=== PATIENT | female | born 1965 | race Caucasian/White ===

== ENCOUNTER 2019-08-31 15:29 | Outpatient (CLI) | payer BC, SELFPAY ==
--- NOTE | 2019-08-31 | ECG_ITS ---
Measurements Intervals [place] Rate: 68 P: 66 IA: 156 QRS: 27 QRSD: 90 T: 38 QT: 410 QTc: 439 Interpretive Statements SINUS RHYTHM BASELINE WANDER- II, III, V1-V2 NORMAL ECG Electronically Signed On 08-31-2019 18:59:59 CDT by Ari Vela D.O.
== END 2019-08-31 15:30 | disposition home or self-care (01) ==
PROVIDERS: PCP Family Medicine; Visit Provider Podiatrist Foot & Ankle Surgery
DX: R03.0 Elevated blood-pressure reading, without diagnosis of hypertension (principal)
CPT/HCPCS: 93005

== ENCOUNTER → 2020-12-21 12:55 | Outpatient (CLI) | payer BC, SELFPAY ==
--- NOTE | ~2020-12-21 | MM_ITS ---
EXAMINATION: MM screening [facility] BI w lucila HISTORY: Screening TECHNIQUE: Craniocaudal and mediolateral oblique 3-D tomosynthesis images were obtained and synthetic 2-D images were generated. CAD analysis was submitted and interpreted. COMPARISON: No prior mammogram is available for comparison at this institution. BREAST PARENCHYMAL COMPOSITION: Breast composed of scattered areas of fibroglandular density. FINDINGS: There is a mass in the lower inner quadrant of the right breast. There is a mass in the upp er outer quadrant of the left breast. IMPRESSION: 1. Bilateral breast masses. 2. Additional mammographic views and possible breast ultrasound are recommended. BI-RADS Category 0: Incomplete: Needs additional imaging evaluation. Reviewed, dictated and finalized at location A. IMPRESSION: 1. Bilateral breast masses. 2. Additional mammographic views and possible breast ultrasound are recommended . BI-RADS Category 0: Incomplete: Needs additional imaging evaluation.
== END ==
PROVIDERS: PCP Family Medicine; Visit Provider Family Medicine
DX: Z12.31 Encounter for screening mammogram for malignant neoplasm of breast (principal); R92.8 Other abnormal and inconclusive findings on diagnostic imaging of breast
CPT/HCPCS: 77063; 77067

== ENCOUNTER → 2021-01-24 08:26 | Outpatient (CLI) | payer BC, SELFPAY ==
--- NOTE | ~2021-01-24 | MMUS_ITS ---
EXAMINATION: MM diagnostic [facility] LT w lucila, US breast LT limited HISTORY: Follow-up enlarging left breast mass TECHNIQUE: Additional 3-D tomosynthesis images of the left breast were performed and synthetic 2-D im ages were generated. CAD analysis was submitted and interpreted. High resolution Limited left breast ultrasound was performed. COMPARISON: Comparison to multiple prior studies sequentially, with oldest reviewed study dated 11/2018. BREAST PARENCHYMAL COMPOSITION: Breast composed of scattered areas of fibroglandular density. FINDINGS: MAMMOGRAPHIC FINDINGS: There is a persistent 2 cm mass in the upper outer quadrant of the left breast which is partially obs cured by fibroglandular tissue. There are no suspicious calcifications or architectural distortion. ULTRASOUND: Limited left breast ultrasound: At 2:00, 6 cm from the nipple, there is a 2.2 cm cyst corresponding t o the mass identified on mammography. No other masses are identified. IMPRESSION: 1. No evidence for malignancy in the left breast. Benign cysts. 2. Routine yearly screening mammogram and regular clinical breast examination are recommended. BI-RADS Category 2: Benign finding(s). Reviewed, dictated and finalized at location A. IMPRESSION: 1. No evidence for malignancy in the left breast. Benign cysts. 2. Routine yearly screening mammogram and regular clinical breast examination a re recommended. BI-RADS Category 2: Benign finding(s).
== END ==
PROVIDERS: PCP Family Medicine; Visit Provider Family Medicine
DX: R92.8 Other abnormal and inconclusive findings on diagnostic imaging of breast (principal)
CPT/HCPCS: 76642; 77061; 77065; G0279

== ENCOUNTER → 2022-11-22 13:47 | Outpatient (CLI) | payer BC, SELFPAY ==
--- NOTE | ~2022-11-22 | MM_ITS ---
EXAMINATION: MM screening [facility] BI w lucila HISTORY: Screening mammogram TECHNIQUE: Craniocaudal and mediolateral oblique 3-D tomosynthesis images were obtained and synthetic 2-D images were generated. CAD analysis was submitted and interpreted. COMPARISON: 01/24/2021, 12/21/2020 BREAST PARENCHYMAL COMPOSITION: There are scattered areas of fibroglandular density. FINDINGS: A mass in the upper outer quadrant of the left breast, previously characterized as a cyst, demonstrates slight interval enlargement in size. No suspicious mass, calcification, or architectural distortion are identified in either breast to suggest malignancy. There has been no suspicious inter jamil change. IMPRESSION: 1. No mammographic evidence of malignancy. 2. Recommend routine screening mammography in one year. BI-RADS Category 2: Benign finding(s). Reviewed, dictated and finalized at location B.
== END ==
PROVIDERS: PCP Family Medicine; Visit Provider Family Medicine
DX: Z12.31 Encounter for screening mammogram for malignant neoplasm of breast (principal)
CPT/HCPCS: 77063; 77067